=== PATIENT | male | born 1980 | race Caucasian/White ===

== ENCOUNTER 2018-08-29 14:38 | Emergency (ER) | payer BC ==
[~2018-08-29] VITALS: Ht 182.9 cm; Wt 105.9 kg
[2018-08-29] MEDS ORDERED: LISI10TA4 (14:48)
[2018-08-29] MEDS ORDERED: HYDROCO/APAP (14:48)
[2018-08-29] MEDS ORDERED: CLEO300C2 (14:48)
[2018-08-29] MEDS ORDERED: AMLO5TAB6 (14:48)
[2018-08-29] MEDS ORDERED: NS 500 ML IV ONE (16:45)
[2018-08-29 17:16] LABS: BASO # 0.1 10^3/uL (0.0-0.2); BASO % 0.7 % (0.0-1.0); EOS # 0.4 10^3/uL (0.0-0.50); EOS % 3.2 % (0.0-3.0); HEMATOCRIT 44.6 % (42.0-52.0); HEMOGLOBIN 15.3 g/dl (13.5-17.5); LYMPH # 2.6 10^3/uL (1.5-4.5); MEAN CORPUSCULAR HEMOGLOBIN 30.8 pg (27.0-33.0); MEAN CORPUSCULAR HGB CONC 34.3 g/dl (32.0-36.5); MEAN CORPUSCULAR VOLUME 89.9 fl (80.0-96.0); MONO # 1.1 10^3/uL (0.0-0.8); MONO % 9.7 % (0.0-5.0); NEUTROPHILS # 7.4 10^3/uL (1.8-7.7); PLATELET COUNT, AUTOMATED 413 10^3/uL (150-450); RED BLOOD COUNT 4.96 10^6/uL (4.30-6.10); WHITE BLOOD COUNT 11.6 10^3/uL (4.0-10.0)
[2018-08-29 17:30] LABS: ALBUMIN 4.3 GM/DL (3.2-5.2); ALT/SGPT 52 U/L (12-78); BILIRUBIN,DIRECT 0.3 MG/DL (0.0-0.2); BILIRUBIN,TOTAL 0.6 MG/DL (0.2-1.0); BLOOD UREA NITROGEN 16 MG/DL (7-18); CALCIUM LEVEL 9.9 MG/DL (8.5-10.1); CARBON DIOXIDE LEVEL 25 MEQ/L (21-32); CHLORIDE LEVEL 102 MEQ/L (98-107); CREATININE FOR GFR 1.05 MG/DL (0.70-1.30); GLOMERULAR FILTRATION RATE > 60.0 (>60); GLUCOSE, FASTING 97 MG/DL (70-100); POTASSIUM SERUM 4.1 MEQ/L (3.5-5.1); SODIUM LEVEL 136 MEQ/L (136-145); TOTAL PROTEIN 8.6 GM/DL (6.4-8.2)
[2018-08-29] MEDS ORDERED: ISOVUE-370 76% 100ML VIAL (Q9967) As Ordered ONE (17:32)
--- NOTE | 2018-08-29 18:47 | REPVR ---
EXAM: CT Maxillofacial With Contrast EXAM DATE/TIME: 08/29/2018 5:37 PM CLINICAL HISTORY: 38 years old, male; Signs and symptoms; Mass, lump, or swelling; Mouth; Additional info: Upper lip swelling/left nare with erythema; ? Abscess TECHNIQUE: Axial computed tomography images of the face with intravenous contrast. All CT scans at this facility use at least one of these dose optimization techniques: automated exposure control; mA and/or kV adjustment per patient size (includes targeted exams where dose is matched to clinical indication); or iterative reconstruction. Coronal and sagittal reformatted images were created and reviewed. CONTRAST: 75 ml of isovue 370 administered intravenously. COMPARISON: No relevant prior studies available. FINDINGS: Orbits: No acute intraorbital abnormality. Globes are unremarkable. Sinuses: Minimal mucosal thickening of scattered ethmoid air cells. A mucus retention cyst or polyp is identified within the right sphenoid sinus. Minimal mucosal thickening of the right maxillary sinus. No air-fluid levels within the paranasal sinuses. Bones/joints: There is a fracture of the nasal bridge, indeterminate in acuity. The remaining visualized facial bones are intact. Nasal cavity: Nasal septal deviation to the left. Soft tissues: There is swelling of the soft tissues anterior to the maxilla and extending to the inferior nasal soft tissues. Anterior to maxilla, there is a hypodense fluid collection measuring 2.9 x 0.9 x 1.7 cm, concerning for abscess. IMPRESSION: 1. There is swelling of the soft tissues anterior to the maxilla and extending to the inferior nasal soft tissues. Anterior to maxilla, there is a hypodense fluid collection measuring 2.9 x 0.9 x 1.7 cm, concerning for abscess. 2. There is a fracture of the nasal bridge, indeterminate in acuity. Clinical correlation is recommended. 3. Paranasal sinus disease is noted above. Electronically signed by: Jerome Galloway On 08/29/2018 18:46:58 PM
[2018-08-29] MEDS ORDERED: CETACAINE SPRAY 5GM TOP ONE (19:15)
[2018-08-29] MEDS ORDERED: CLINDAMYCIN 600 MG in APPROPRIATE DILUENT 1 EA IV ONE (19:30)
[2018-08-29] MEDS ORDERED: MORPHINE 4 MG/ML 1ML VIAL/SYRINGE (J2270) IV ONE (20:00)
[2018-08-29 20:56] VITALS: BP 122/73
== END 2018-08-29 21:02 | disposition home or self-care (01) ==
LOC: M ED 14:38
DX: K13.0 Diseases of lips (principal); I10 Essential (primary) hypertension; Z79.2 Long term (current) use of antibiotics; Z79.891 Long term (current) use of opiate analgesic; Z79.899 Other long term (current) drug therapy
CPT/HCPCS: 10060; 36415; 70487; 80048; 80076; 83605; 85025; 87040; 96365; 96375; 99284; J2270; Q9967